=== PATIENT | female | born 1965 | race Caucasian/White ===

== ENCOUNTER → 2016-09-12 | Outpatient (CLI) | payer MEDICARE, OTHER ==
--- NOTE | 2016-09-12 15:17 | RAD ---
DATE: 09/12/2016 EXAM: DIGITAL SCREEN BILAT W/CAD HISTORY: Routine screening COMPARISON: Baseline study This study was interpreted with the benefit of Computerized Aided Detection (CAD). The breast parenchyma shows scattered fibroglandular densities. Breast parenchyma level B. FINDINGS: No suspicious breast densities are seen. There is a benign-appearing lymph node type density projected over the axillary tail region of the right breast. There are scattered benign type calcifications. No suspicious microcalcifications are evident. IMPRESSION: There is no mammographic evidence of malignancy in either breast. BI-RADS CATEGORY: 2 BENIGN FINDING(S) RECOMMENDED FOLLOW-UP: 12M 12 MONTH FOLLOW-UP PQRS compliance statement: Patient information was entered into a reminder system with a target due date for the next mammogram. Mammography is a sensitive method for finding small breast cancers, but it does not detect them all and is not a substitute for careful clinical examination. A negative mammogram does not negate a clinically suspicious finding and should not result in delay in biopsying a clinically suspicious abnormality. "Our facility is accredited by the [employer] Mammography Program."
== END | disposition home or self-care (01) ==
LOC: MAMMO 09:01
PROVIDERS: ATTEND Family Medicine
DX: Z12.31 Encounter for screening mammogram for malignant neoplasm of breast (principal)
CPT/HCPCS: G0202; 77067

== ENCOUNTER → 2017-07-13 | Outpatient (CLI) | payer MEDICARE, OTHER ==
[2017-07-13 14:52] LABS: ADD MAN DIFF? NO
[2017-07-13 15:03] LABS: BASO # 0.1 x10^3/uL (0.0-0.2); BASO % 1 % (0-3); EOS # 0.1 x10^3/uL (0.0-0.7); EOS % 2 % (0-3); HEMATOCRIT 45.6 % (36.0-47.0); HEMOGLOBIN 15.7 g/dL (12.0-15.5); LYMPH # 2.4 x10^3/uL (1.0-4.8); LYMPH % 38 % (24-48); MEAN CORPUSCULAR HEMOGLOBIN 31 pg (25-35); MEAN CORPUSCULAR HGB CONC 34 g/dL (31-37); MEAN CORPUSCULAR VOLUME 89 fL (79-100); MONO # 0.5 x10^3/uL (0.0-1.1); MONO % 7 % (0-9); NEUT # 3.3 x10^3uL (1.8-7.7); NEUT % 52 % (31-73); PLATELET COUNT 206 x10^3/uL (140-400); RED BLOOD COUNT 5.15 x10^6/uL (3.50-5.40); RED CELL DISTRIBUTION WIDTH 13.1 % (11.5-14.5); WHITE BLOOD COUNT 6.3 x10^3/uL (4.0-11.0)
[2017-07-13 15:11] LABS: ALBUMIN 3.7 g/dL (3.4-5.0); ALBUMIN/GLOBULIN RATIO 0.8 (1.0-1.7); ALK PHOS 78 U/L (46-116); ALT (SGPT) 75 U/L (14-59); ANION GAP 9 (6-14); AST (SGOT) 61 U/L (15-37); BLOOD UREA NITROGEN 14 mg/dL (7-20); BUN/CREATININE RATIO 20 (6-20); CALCIUM 8.7 mg/dL (8.5-10.1); CARBON DIOXIDE 26 mmol/L (21-32); CHLORIDE 106 mmol/L (98-107); CREATININE 0.7 mg/dL (0.6-1.0); GFR 88.2; GLUCOSE 93 mg/dL (70-99); POTASSIUM 4.1 mmol/L (3.5-5.1); SODIUM 141 mmol/L (136-145); TOTAL BILIRUBIN 0.3 mg/dL (0.2-1.0); TOTAL PROTEIN 8.2 g/dL (6.4-8.2)
[2017-07-13 16:25] LABS: BILIRUBIN,URINE NEGATIVE (NEG); CLARITY,URINE CLEAR; COLOR,URINE YELLOW; GLUCOSE,URINE NEGATIVE (NEG); NITRITE,URINE NEGATIVE (NEG); PH,URINE 5.5; PROTEIN,URINE NEGATIVE (NEG-TRACE); UROBILINOGEN,URINE 0.2 mg/dL (0.2 mg/dL)
[2017-07-13 16:42] LABS: BACTERIA,URINE 0 /HPF (0-FEW); RBC,URINE 0 /HPF (0-2); SQUAMOUS EPITHELIAL CELL,UR MOD /LPF; WBC,URINE OCC /HPF (0-4)
== END | disposition home or self-care (01) ==
LOC: SURGPAT 13:23
DX: Z01.818 Encounter for other preprocedural examination (principal); R07.89 Other chest pain; Z90.710 Acquired absence of both cervix and uterus
CPT/HCPCS: 36415; 71046; 80053; 81001; 85025; 87086; 93005

== ENCOUNTER 2017-07-27 06:40 | Observation (INO) | payer OTHER, MEDICARE ==
[~2017-07-27 06:40] MED LIST: ESTROGENS, CONJ VAGINAL CREAM 30GM TUBE.; METHYLENE BLUE 1% 10 ML VIAL.
[2017-07-27] MEDS ORDERED: MORPHINE SULFATE 4 MG/ML DISP.SYRIN. IV (07:00)
[2017-07-27] MEDS ORDERED: ONDANSETRON PF 4 MG/2 ML VIAL. IV ×2 (07:00→10:45)
[2017-07-27] MEDS ORDERED: PROCHLORPERAZINE 10 MG/2 ML VIAL. IV (07:00)
[2017-07-27] MEDS ORDERED: fentaNYL PF VIAL 100 MCG/2 ML VIAL IV (07:00)
[2017-07-27] MEDS ORDERED: LIDOCAINE 1% PF 2 ML VIAL. ID (07:00)
[2017-07-27] MEDS: IV RINGERS,LACTATED 1000ML 1,000 ML IV (07:04)
[2017-07-27] MEDS ORDERED: ONDANSETRON PF 4 MG/2 ML VIAL. (07:08)
[2017-07-27] MEDS ORDERED: ROCURONIUM 50 MG/5 ML VIAL. (07:08)
[2017-07-27] MEDS ORDERED: MIDAZOLAM HCL/PF 2 MG/2 ML VIAL. (07:08)
[2017-07-27] MEDS ORDERED: DEXAMETHASONE SOD PHOS 20 MG/5 ML VIAL. (07:08)
[2017-07-27] MEDS ORDERED: KETOROLAC 30 MG/ML INJ FOR OR. INJ (07:08)
[2017-07-27] MEDS ORDERED: fentaNYL PF VIAL 100 MCG/2 ML VIAL ×4 (07:08→12:11)
[2017-07-27] MEDS ORDERED: PROPOFOL 20 ML IV (07:08)
[2017-07-27] MEDS ORDERED: LIDOCAINE 2% PF Vial for OR 5 ML VIAL. (07:08)
[2017-07-27] MEDS ORDERED: FAMOTIDINE 20 MG/2 ML VIAL (07:08)
[2017-07-27 07:32] LABS: NEG OBC SER NEG; POS OBC SER POS; PREG TEST PT QUAL NEGATIVE (NEG)
[2017-07-27] MEDS ORDERED: PHENYLEPHRINE in 0.9% NACL PF 1 MG/10 ML SYRINGE. IV (07:47)
[2017-07-27] MEDS: BUPIVACAINE-EPI 0.25%-1:200000 50 ML VIAL. ×2 (08:09)
[2017-07-27] MEDS ORDERED: NEOSTIGMINE METHYLSULFATE 5 MG/5 ML SYRINGE. (09:38)
[2017-07-27] MEDS ORDERED: GLYCOPYRROLATE 1 MG/5 ML VIAL. (09:38)
[2017-07-27] MEDS ORDERED: DESFLURANE > 120 MINUTES IH (09:38)
[2017-07-27] MEDS ORDERED: NALOXONE 0.4 MG/ML VIAL. IV (10:45)
[2017-07-27] MEDS ORDERED: 0.9 % SODIUM CHLORIDE 10 ML DISP.SYRIN. IV (10:45)
[2017-07-27] MEDS ORDERED: ZOLPIDEM 5 MG TABLET. PO (10:45)
[2017-07-27] MEDS ORDERED: diphenhydrAMINE HCL 25 MG CAPSULE PO (10:45)
[2017-07-27] MEDS ORDERED: SIMETHICONE 80 MG TAB.CHEW PO (10:45)
[2017-07-27] MEDS ORDERED: diphenhydrAMINE 50 MG/ML VIAL IV (10:45)
[2017-07-27] MEDS ORDERED: MAGNESIUM HYDROXIDE 2,400 MG/30 ML ORAL.SUSP. PO (10:45)
[2017-07-27] MEDS ORDERED: HYDROcodone/APAP 5/325MG 1 TAB TABLET PO (10:45)
[2017-07-27] MEDS ORDERED: LACTULOSE 20 GM/30 ML SOLUTION. PO (10:45)
[2017-07-27] MEDS ORDERED: CALCIUM CARBONATE 500 MG TAB.CHEW PO (10:45)
[2017-07-27] MEDS: fentaNYL PF VIAL 100 MCG/2 ML VIAL IV ×4 (11:05→12:46)
[2017-07-27] MEDS ORDERED: ceFAZolin 2GM PREMIX 2 GM/50 ML BAG IV (12:00)
[2017-07-27] MEDS: KETOROLAC 30 MG/ML INJ. IV ×2 (16:49→22:32)
[2017-07-27] MEDS: oxyCODONE/APAP 5/325 1 TAB TABLET PO ×2 (18:29→22:31)
[2017-07-27] MEDS: MAG HYDROX/ALUMINUM HYD/SIMETH 30 ML ORAL.SUSP PO (21:04)
[2017-07-27] MEDS: MORPHINE SULFATE 2 MG/ML DISP.SYRIN. IV (21:07)
[2017-07-28] MEDS: oxyCODONE/APAP 5/325 1 TAB TABLET PO ×2 (02:33→08:47)
[2017-07-28] MEDS: KETOROLAC 30 MG/ML INJ. IV (04:21)
[2017-07-28 07:01] LABS: HEMATOCRIT 35.9 % (36.0-47.0)
[2017-07-28 09:46] LABS: ANION GAP 6 (6-14); BLOOD UREA NITROGEN 11 mg/dL (7-20); CARBON DIOXIDE 30 mmol/L (21-32); CHLORIDE 107 mmol/L (98-107); CREATININE 0.8 mg/dL (0.6-1.0); GFR 75.6; GLUCOSE 120 mg/dL (70-99); SODIUM 143 mmol/L (136-145)
== END 2017-07-28 09:37 | disposition home or self-care (01) ==
LOC: SURG 06:40 → 3 NORTH 11:08
DX: N81.4 Uterovaginal prolapse, unspecified (principal); N80.0 Endometriosis of uterus; N88.8 Other specified noninflammatory disorders of cervix uteri; N83.202 Unspecified ovarian cyst, left side; N83.201 Unspecified ovarian cyst, right side; N32.89 Other specified disorders of bladder; N81.3 Complete uterovaginal prolapse
CPT/HCPCS: 36415; 80048; 84703; 85014; 86850; 86900; 86901; 88307; 96374; 96375; 96376; A7015; C1771; G0378; G0379; J0690; J1100; J1885; J2250; J2270; J2370; J2405; J2704; J2710; J3010; J3490; J7030; J7120; Q9968; S0028

== ENCOUNTER 2017-09-03 07:39 | Emergency (ER) | payer OTHER | END 2017-09-03 09:37 | disposition home or self-care (01) | LOC: ER 07:39 | DX: K59.00 Constipation, unspecified (principal); E11.9 Type 2 diabetes mellitus without complications; F17.210 Nicotine dependence, cigarettes, uncomplicated; Z90.710 Acquired absence of both cervix and uterus; Z88.8 Allergy status to other drugs, medicaments and biological substances | CPT/HCPCS: 99284 ==

== ENCOUNTER 2020-11-01 19:45 | Emergency (ER) | payer MEDICAID, OTHER ==
[~2020-11-01] VITALS: Ht 160 cm; Wt 118.0 kg
[~2020-11-01 19:45] MED LIST changes: +BUSP10TA PO; +DOCU-109 PO; +ESCI20TA8 PO; -ESTROGENS, CONJ VAGINAL CREAM 30GM TUBE.; -METHYLENE BLUE 1% 10 ML VIAL.; +NABU500T11 PO; +ROPI0.5T4 PO; +SOLI5TAB2 PO
--- NOTE | 2020-11-01 22:41 | PHYS DOC ---
Past Medical History Past Medical History: Anxiety, Arthritis, Depression, Diabetes-Type II Additional Past Medical Histor: Degenerative Disc Disease, RESTLESS LEG SYNDROME. (HILARIO NAPIER) Past Surgical History: Hip Replacement, Hysterectomy Additional Past Surgical Histo: Bladder Sling, Ectopic (HILARIO NAPIER) Smoking Status: Current Every Day Smoker (1/2ppd) Alcohol Use: None Drug Use: None (HILARIO NAPIER) General Adult EDM: Chief Complaint: LOWER EXT PAIN Problems: (1) Lower extremity pain, left (HILARIO NAPIER) HPI: HPI: Patient is a 55 year old female who presents with left lower extremity pain and swelling since yesterday. Patient states that the swelling and pain has gotten worse since onset. She reports her pain today 5/10 achy pressure, with sharp radiation up her leg. Pain is worse with ambulation, and Tylenol at home has not helped. Patient denies new onset shortness of breath, cough or wheezing outside of her baseline. Patient states that she does not work and is on disability. Patient denies trauma or fall. She uses a cane to walk around her home as needed. She is a current every day smoker and reports smoking half pack per day, but is trying to quit. She has not had any recent travel or surgeries in the past 90 days. Patient denies headache, vision changes, chest pain, palpitations. (HILARIO NAPIER) Review of Systems: Review of Systems: Constitutional: Denies fever or chills. [] Eyes: Denies change in visual acuity. [] HENT: Denies nasal congestion or sore throat. [] Respiratory: Denies cough or shortness of breath. [] Cardiovascular: Denies chest pain or edema. [] GI: Denies abdominal pain, nausea, vomiting, bloody stools or diarrhea. [] : Denies dysuria. [] Musculoskeletal: Denies back pain or joint pain. [] Integument: Denies rash. [] Neurologic: Denies headache, focal weakness or sensory changes. [] Endocrine: Denies polyuria or polydipsia. [] Lymphatic: Denies swollen glands. [] Psychiatric: Denies depression or anxiety. [] (HILARIO NAPIER) Heart Score: C/O Chest Pain: No (HILARIO NAPIER) Allergies: Allergies: Allergies Coded Allergies Type Severity Reaction Last Updated Verified No Known Medication Allergies Allergy Unknown 07/27/17 Yes Uncoded Allergies Type Severity Reaction Last Updated Verified mika Allergy Severe 07/13/17 (HILARIO NAPIER) Physical Exam: PE: Constitutional: Obese, well groomed, no acute distress, non-toxic appearance. Cardiovascular: Heart rate regular rhythm, no murmur. Lungs & Thorax: Bilateral breath sounds clear to auscultation. Skin: Warm, dry, no erythema, no rash. Back: No tenderness, no step-offs. Extremities: Lower LLE is tender on the posteromedial aspect. The entire left lower extremity is swollen compared to right. Varicose veins noted on bilateral lower extremities. No cyanosis, no clubbing, ROM intact, distal pulses intact. Neurologic: Alert and oriented X 3, normal motor function, normal sensory function, no focal deficits noted. (HILARIO NAPIER) Current Patient Data: Vital Signs: Vital Signs Date Time Temp Pulse Resp B/P (MAP) Pulse Ox O2 Delivery O2 Flow Rate FiO2 11/01/20 22:00 97.8 71 153/101 (118) 99 Room Air 97.8 (HILARIO NAPIER) Radiology/Procedures: Radiology/Procedures: PROCEDURE: VENOUS LOWER EXTREMITY LEFT Exam: Left lower extremity venous duplex study INDICATION: Leg swelling TECHNIQUE: Using a combination of real-time ultrasound imaging and color-flow and pulse Doppler imaging techniques along with graded compression and augmentation, duplex evaluation of the deep venous systems of leftlower extremity was performed. Multiple images were obtained. Findings: There is no sonographic evidence for deep venous thrombosis involving the visualized deep venous structures of the left lower extremity. IMPRESSION: No acute DVT in the left lower extremities. Electronically signed by: Jessy Rudd MD (11/01/2020 11:01 PM) [facility] (HILARIO NAPIER) Course & Med Decision Making: Course & Med Decision Making Pertinent Labs and Imaging studies reviewed. (See chart for details) With no history of trauma to induce pain and no signs of local infection paired with patient history of daily, regional intermodal truck driver tobacco use is concerning for DVT. D-di sandi is deferred secondary to high wells criteria and a LLE ultrasound was ordered. Patient states that she does not need any medication for pain at this time. After the ultrasound was performed, the patient asked for medication for pain (increased to 7/10). She was given 15 of Toradol IM. On reevaluation, patient states her pain is much better. US results discussed with the patient. She was counselled on the use of compression garments to help increase venous return and decrease swelling of lower extremities. Once her pain is managed, plan is to discharge home with instruction to follow up with her PCP for further management and monitoring of vascular status. (HILARIO NAPIER) Course & Med Decision Making I have reviewed and was available for consultation in the emergency department for this patient that was seen by midlevel provider. Of note, I recommended the DVT ultrasound and for labs to be drawn which were not ordered by the midlevel provider. Rolando Kline DO (ROLANDO KLINE DO) Wendy Disclaimer: Wendy Disclaimer: This electronic medical record was generated, in whole or in part, using a voice recognition dictation system. (HILARIO NAPIER) Departure Departure Impression: Primary Impression: Left leg swelling Disposition: HOME / SELF CARE / HOMELESS Condition: STABLE Referrals: TREVOR SAMAYOA MD (PCP) Patient Instructions: Edema, [id number] Additional Instructions: Please follow-up with your primary care provider about today's visit. They can further manage and monitor your symptoms. HILARIO NAPIER Nov 01, 2020 22:41 ROLANDO KLINE DO Nov 02, 2020 01:13
--- NOTE | 2020-11-01 23:04 | RAD ---
Exam: Left lower extremity venous duplex study INDICATION: Leg swelling TECHNIQUE: Using a combination of real-time ultrasound imaging and color-flow and pulse Doppler imagi ng techniques along with graded compression and augmentation, duplex evaluation of the deep venous sy stems of leftlower extremity was performed. Multiple images were obtained. Findings: There is no sonographic evidence for deep venous thrombosis involving the visualized deep venous stru ctures of the left lower extremity. IMPRESSION: No acute DVT in the left lower extremities. Electronically signed by: Jessy Rudd MD (11/01/2020 11:01 PM) TOD
[2020-11-01 23:30] VITALS: BP 135/83
[2020-11-01] MEDS ORDERED: KETOROLAC 15 MG/ML VIAL. IM ONE (23:30)
== END 2020-11-02 00:02 | disposition home or self-care (01) ==
LOC: ER 19:45
DX: R22.42 Localized swelling, mass and lump, left lower limb (principal); M79.605 Pain in left leg; E11.9 Type 2 diabetes mellitus without complications; G25.81 Restless legs syndrome; F17.200 Nicotine dependence, unspecified, uncomplicated; Z90.710 Acquired absence of both cervix and uterus; Z88.8 Allergy status to other drugs, medicaments and biological substances
CPT/HCPCS: 93971; 96372; 99284; J1885